=== PATIENT | male | born 1985 | race Caucasian/White ===

== ENCOUNTER 2020-04-23 18:54 | Emergency (ER) | payer BC ==
[~2020-04-23] VITALS: Ht 190.5 cm; Wt 99.8 kg
--- NOTE | 2020-04-23 19:19 | NUR ---
Pt brought himself in to the ER. AO x 4. Verbalized that he is here for tooth ache, per patient, it started a week ago, and it slowly got worse over time. Rated pain 7-10/10 at this time. Denies any other discomfort. No GI/ discomfort. Ambulates in steady gait. Sitting in bed at this time. Bed locked in position. Safety precautions in place.
--- NOTE | 2020-04-23 19:21 | NUR ---
Dr. Herrera at bedside for MSE.
--- NOTE | 2020-04-23 19:25 | NUR ---
Pt is cleared for discharge at this time. Written and verbal after care instructions given. Patient verbalizes understanding of instructions. Stressed to follow up with dentist, or return to ER for worsening s/s. Patient ambulated out of ER in stable condition.
[2020-04-23 19:27] VITALS: BP 140/80
== END 2020-04-23 19:28 | disposition home or self-care (01) ==
LOC: ER 18:56
DX: K04.7 Periapical abscess without sinus (principal)
CPT/HCPCS: A4663